=== PATIENT | male | born 1960 | race Caucasian/White ===

== ENCOUNTER 2016-12-22 13:43 | Inpatient (IN) ==
[2016-12-22] MEDS ORDERED: ZOFRAN IV ONE (14:06)
[2016-12-22] MEDS ORDERED: NS 1,000 ML IV ONE (14:06)
[2016-12-22] MEDS ORDERED: TORADOL IV ONE (14:06)
--- NOTE | 2016-12-22 14:16 | PROVIDER DOCUMENTATION ---
HPI-General Adult - General Chief Complaint: Male Stated Complaint: kidney stone Time Seen by Provider: 12/22/16 13:59 Source: patient Allergies/Adverse Reactions: Patient Allergies Allergy/AdvReac Type Severity Reaction Status Date / Time bimatoprost [From [place]] Allergy Mild ITCHING Verified 12/22/16 15:12 Home Medications: Home Medication List Medication Instructions Recorded Confirmed Last Taken Type Aspirin [Aspirin EC] 81 mg PO DAILY 09/03/14 12/22/16 09/03/14 21:00 History Cholecalciferol (Vitamin D3) 1,000 unit PO DAILY 09/03/14 12/22/16 09/03/14 21: 00 History [Vitamin D3] Metformin [Glucophage] 1,000 mg PO BID CC 09/03/14 12/22/16 09/03/14 21:00 History Valsartan/Hydrochlorothiazide 1 each PO DAILY 09/03/14 12/22/16 09/03/14 21:00 History [Diovan Hct 320-25 mg Tablet] Atorvastatin Calcium [Lipitor] 40 mg PO DAILY 12/22/16 12/22/16 Unknown History Clopidogrel Bisulfate [Plavix] 75 mg PO DAILY 12/22/16 12/22/16 Unknown History Isosorbide Dinitrate 30 mg PO DAILY 12/22/16 12/22/16 Unknown History - History of Present Illness -Gen Adult Nature of Presenting Problems: Pt. is 56 yom that presents with c/o pain in the suprapubic area and states he can barely urinate. Pt. reports he is being treated by Dr. Bee for a kidney stone and has not seen a urologist yet. Pt. reports he is nauseated and reports he took a percocet prior to coming to the ED. Pt. denies any other symptoms at time of exam. Location of Pain/Injury: reports: genitalia. denies: none, head, face, mouth, neck, chest, upper extremity, hand(s), abdomen, back, pelvis, lower extremity, feet, upper body, lower body, generalized, other Pain Radiation: reports: no radiation. denies: arm(s), back, buttocks, chest, epigastric, feet, groin, jaw, flank (L), legs (lower), LLQ, LUQ, neck, periumbilical, flank (R), RLQ, RUQ, shoulder(s), scapula, scrotal, sternal notch , suprapubic, legs (upper), urethral, vaginal, other Quality of Pain: reports: aching. denies: burning, cramping, dull, fullness, indigestion, pressure, sharp, stabbing, tearing, throbbing, tightness Severity: reports: moderate. denies: mild, severe Onset/Duration: reports: gradual, this morning Timing: reports: still present. denies: improving, gone now, resolved prior to arrival, intermittent, constant, changing over time, getting worse Context/Activities at Onset: reports: none. denies: recent emotional stress, recent physical stress, recent trauma history, possible bad food, cold exposure , eating, out of country travel Modifying Factors: improves with: nothing Associated Symptoms: reports: genitourinary problems, nausea. denies: denies symptoms, anxiety, arm pain, back/neck pain, chest pain, constipation, cough, diaphoresis, diarrhea, dizziness, EENT symptoms, fatigue, fever/chills, headaches, heartburn, joint pain, loss of appetite, malaise, muscle aches, sinus congestion/drainage, rash, seizure, shortness of breath, sensory/motor loss, pain with inspiration, swelling/mass in abdomen, syncope, vomiting, weakness, trouble walking, other Similar Symptoms Previously?: Yes Recently seen or treated by another doctor?: Yes Review of Systems - Adult - REVIEW OF SYSTEMS - ADULT Constitutional: reports: see HPI. denies: chills, fever, fatique Eyes: reports: see HPI. denies: discharge, blurred vision, double vision Ears, Nose, Mouth & Throat: reports: see HPI. denies: ear pain, sinus problem, mouth/dental pain, throat swelling Cardiovascular: reports: see HPI. denies: chest pain, irregular heart rate, palpitations, syncope Respiratory: reports: see HPI. denies: cough, dyspnea on exertion, pleurisy, wheezing Gastrointestinal: reports: see HPI, abdominal pain, nausea. denies: diarrhea, vomiting Genitourinary: reports: see HPI, flank pain, urinary retention. denies: discharge, hesitency, incontinence, urgency Musculoskeletal: reports: see HPI. denies: bone pain, joint pain, muscle aches , neck pain Integumentary: reports: see HPI. denies: hives, itching, rash, skin thickening Neurological: reports: see HPI. denies: ataxia, headache/migraines, numbness, seizure, tremors Psychiatric: reports: see HPI. denies: anxiety, depression, emotional problems , insomnia, panic attacks, suicidal thoughts Past History - Adult - PAST MEDICAL HISTORY-ADULT Review of Records: reports: Old Records Reviewed, Nursing Assessment Review, Medications Reviewed, Social history reviewed & non-contributory. Cardiovascular: reports: CAD, HTN, hyperlipidemia Endocrine/Immune: reports: Diabetes - IMMUNIZATION STATUS Childhood Immunizations: See Nurse Assessment Flu Vaccine: See Nurse Assessment - FAMILY HISTORY Family History: reviewed, not pertinent - SOCIAL HISTORY Smoking: denies Physical Exam-General - PHYSICAL EXAM-ADULT Initial Vital Signs Reviewed: Yes - CONSTITUTIONAL General Appearance: alert, moderate distress, obese. negative: thin, anxious, lethargic, slow to respond, obtunded, combative - EYES Eyes: PERRL/EOMI, pink conjunctivae. negative: conjuctival exudate, scleral icterus, subconjunctival hemorrhage - HEAD, EARS, NOSE, MOUTH & THROAT HENMT: normocephalic/atraumatic, moist mucous membranes. negative: angioedema, frontal tenderness, maxillary tenderness - NECK Neck: non-tender, full range of motion, supple, normal inspection. negative: lymphadenopathy, trachial deviation, thyromegaly - RESPIRATORY Respiratory: lungs clear, normal breath sounds. negative: crackles, rales, rhonchi, stridor, wheezing - CARDIOVASCULAR Cardiovascular: normal peripheral pulses, regular rate, rhythm, no edema, no JVD , no murmur. negative: extra beats, friction rub, irregularly irregular - GASTROINTESTINAL (ABDOMEN) Abdominal Exam: normal bowel sounds, soft, tenderness (Suprapubic). negative: distended, guarding, rigid, rebound, hernia, mass - LYMPHATIC Lymphatic: no adenopathy. negative: axilla node tender, cervical node tenderness - MUSCULOSKELETAL Back Exam: normal inspection, no CVA tenderness, no vertebral tenderness. negative: ecchymosis, swelling, vertebral tenderness Extremity: normal range of motion, non-tender, normal gait, normal inspection. negative: deformity, erythema, inflammation, swelling, tenderness Peripheral Pulses: radial (R): 2+, radial (L): 2+ - SKIN Integumentary: normal color, normal turgor, warm/dry. negative: cyanosis, diaphoresis, ecchymosis, erythema, jaundice, mottled, pallor, petechiae, purpura , rash, swelling, tenderness - NEUROLOGIC Neurologic: grossly normal, no motor/sensory deficits. negative: aphasia, facial droop, focal weakness, motor weakness, sensory deficit - PSYCHIATRIC Psych/Mental Status: normal mood/affect, normal thought content, normal thought process, oriented x 3. negative: anxious, paranoid, tearful Progress - PLAN OF CARE/RESULTS Progress/Plan/Lab Results: Vital Signs - 8 hr 12/22/16 13:56 Temperature 97.7 F Pulse Rate 56 L Respiratory Rate 16 Blood Pressure 190/99 O2 Sat by Pulse Oximetry 99 Orders Category Date Time Status Saline Loc NOW Care 12/22/16 14:[address] RENAL STONE SEARCH [CT] Stat Exams 12/22/16 14:00 Ordered CBC WITH ELECTRONIC DIFF [HEME] Stat Lab 12/22/16 14:08 Ordered COMPREHENSIVE METABOLIC PANEL [CHEM] Stat Lab 12/22/16 14:08 Ordered URINALYSIS W/POSS RFLX CULT-1 [URINALYSIS] Stat Lab 12/22/16 14:08 Ordered 0.9% Sodium Chloride Inj [Ns] 1,000 ml Med 12/22/16 14:06 Active IV 999 mls/hr Ketorolac [Toradol] Med 12/22/16 14:06 Discontinued 30 mg IV NOW ONE Ondansetron [Zofran] Med 12/22/16 14:06 Discontinued 4 mg IV NOW ONE Laboratory Tests 12/22/16 12/22/16 12/22/16 14:00 14:00 14:06 WBC 5.82 RBC 5.14 Hgb 16.1 Hct 46.0 MCV 89.5 MCH 31.3 H MCHC 35.0 RDW Std Deviation 13.5 Plt Count 181 MPV 10.2 Immature Gran % (Auto) 0.3 Neut % (Auto) 67.2 Lymph % (Auto) 21.0 Hale % (Auto) 8.6 Eos % (Auto) 2.2 Baso % (Auto) 0.7 Immature Gran # (Auto) 0.02 Neut # (Auto) 3.91 Lymph # (Auto) 1.22 Hale # (Auto) 0.50 Eos # (Auto) 0.13 Baso # (Auto) 0.04 Sodium Potassium Chloride Carbon Dioxide Anion Gap BUN Creatinine Estimated GFR/1.73 m2 BUN/Creatinine Ratio Glucose Calculated Osmolality Calcium Total Bilirubin AST ALT Alkaline Phosphatase Total Protein Albumin Globulin Albumin/Globulin Ratio Urine Source Cancelled CATH Urine Color Cancelled YELLOW Urine Clarity CLEAR Urine Turbidity Cancelled Urine pH Cancelled 5.5 Ur Specific [place] Cancelled >= 1.030 Urine Protein Cancelled 100 A Ur Glucose (Stick) Cancelled Urine Ketones NEGATIVE Ur Ketones (Stick) Cancelled Urine Blood Cancelled LARGE A Urine Nitrite Cancelled NEGATIVE Urine Bilirubin Cancelled NEGATIVE Urine Urobilinogen 0.2 Urobilinogen Dipstick Cancelled Urine Leukocytes Cancelled Urine WBC (Auto) Cancelled Urine RBC (Auto) Cancelled U Epithel Cells (Auto) Cancelled Urine Bacteria (Auto) Cancelled Urine Microscopic RBC <10 Urine WBC NEGATIVE Urine Microscopic WBC <10 Ur Epithelial Cells <10 Urine Glucose NEGATIVE 12/22/16 14:06 WBC RBC Hgb Hct MCV MCH MCHC RDW Std Deviation Plt Count MPV Immature Gran % (Auto) Neut % (Auto) Lymph % (Auto) Hale % (Auto) Eos % (Auto) Baso % (Auto) Immature Gran # (Auto) Neut # (Auto) Lymph # (Auto) Hale # (Auto) Eos # (Auto) Baso # (Auto) Sodium 135 L Potassium 4.7 Chloride 95 L Carbon Dioxide 28 Anion Gap 12 BUN 18 Creatinine 0.9 Estimated GFR/1.73 m2 > 60 BUN/Creatinine Ratio 20 Glucose 191 H Calculated Osmolality 277 Calcium 10.4 H Total Bilirubin 0.83 AST 30 ALT 50 H Alkaline Phosphatase 84 Total Protein 7.7 Albumin 5.1 H Globulin 2.6 Albumin/Globulin Ratio 2.0 Urine Source Urine Color Urine Clarity Urine Turbidity Urine pH Ur Specific [place] Urine Protein Ur Glucose (Stick) Urine Ketones Ur Ketones (Stick) Urine Blood Urine Nitrite Urine Bilirubin Urine Urobilinogen Urobilinogen Dipstick Urine Leukocytes Urine WBC (Auto) Urine RBC (Auto) U Epithel Cells (Auto) Urine Bacteria (Auto) Urine Microscopic RBC Urine WBC Urine Microscopic WBC Ur Epithelial Cells Urine Glucose Discussed results and plan of care with patient. Patient agrees with plan and verbalizes understanding. Result Diagrams: 12/22/16 14:06 12/22/16 14:06 - CT/MRI 1 CT Study: Renal Stone (1. Persistent distal ureter stone on the right. Now there is significant hydroureteronephrosis. 2. Stable left nephrolithiasis. 3. Stable abnormal contour of the prostate gland. Further, outpatient investigation recommended. ([place])) CT Results: See note - CONSULTS/PCP/HOSPITALIST Notification #1 *Consult/PCP/Hospitalist*: Dr. Bee Time Discussed: 16:33 Reason/Comments: Admission Consult Disposition: Will see in ED (Dr. Bee at bedside now.), Admit #2 Consult: Dr. Keller Time Discussed: 16:40 Reason/Comments: Consult Consult Disposition: other (Dr. Keller staff called because he was in with a patient. She will speak with him and call back. His staff called back and he will see the patient after he finishes with clinic.) Departure - Departure Date of Disposition Decision: 12/22/16 Time of Disposition Decision: 15:05 DIAGNOSIS: Renal colic Disposition: ADMITTED INPATIENT Certified Medical Emergency: Emergent Condition: Stable Additional Freetext Instructions: Follow up with primary care physician Follow up with urology physician Take medications as directed Return to ED for any concerns or worsening of symptoms ED Follow Up Instructions: You have been treated by a care provider in the Emergency Department. These instructions are being provided to you so you can have an understanding of how to care for yourself upon discharge. Upon discharge from the Emergency Department, you are responsible for making arrangements for follow-up care by a physician of your choice. Take all prescribed medications as directed. Return to the Emergency Department immediately for any new or worsening symptoms. You may call the Physician Referral phone number at [phone] to obtain a list of Physicians who are taking new patients. Referrals and Follow-Ups: Thor Bee MD [Primary Care Provider] - Work Excuses: Return to School/Parent Work Discharge Education: Renal Colic - Critical Care Note This patient required my direct & personal management of CC.: No Attestation - Physician/ LACHO Attestation Patient care was provided by Advanced Practice Provider:: Yes Advanced Practice Provider:: Armaan Carvajal (The physician is on site and did have face to face contact with the patient. ) Advanced Practice Provider documentation review:: The Mid-level provider documentation, treatment plan and medical decision making was reviewed by the physician who agrees with all treatment and medical decision making by the MLP. The physician spent face to face time with patient:: Yes Advanced Practice Provider documentation review:: Supervising physician onsite and consulted in the evaluation and care of this patient. The physician did have a face to face encounter with the patient.
[2016-12-22 14:20] LABS: MANUAL DIFF NEEDED? NO
[2016-12-22 14:31] LABS: BASO% 0.7 % (0.0-0.8); EOS# 0.13 X1000 (0.0-0.7); EOS% 2.2 % (0.0-10.0); HEMOGLOBIN 16.1 g/dL (14.0-18.0); IMM GRAN# 0.02 X1000 (0.0-0.04); IMM GRAN% 0.3 % (0.0-0.5); LYMPH# 1.22 X1000 (1.2-3.4); MCH 31.3 PG (27-31); MCV 89.5 FL (81-99); MONO% 8.6 % (1.7-9.3); MPV 10.2 FL (7.4-10.4); NEUT% 67.2 % (42.2-75.2); PLT 181 X1000 (130-400); RBC 5.14 XMIL (4.7-6.1)
[2016-12-22 14:43] LABS: AGAP 12; ALBUMIN 5.1 g/dL (3.5-5.0); ALKALINE PHOSPHATASE 84 U/L (32-122); BUN 18 mg/dL (8-22); CALCIUM 10.4 mg/dL (8.8-10.2); CHLORIDE 95 mmol/L (98-107); COSMO 277; GOT 30 U/L (10-34); GPT 50 U/L (10-44); POTASSIUM 4.7 mmol/L (3.5-5.1); SODIUM 135 mmol/L (136-145); TCO2 28 mmol/L (25-35); TOTAL BILIRUBIN 0.83 mg/dL (0.20-1.00); TOTAL PROTEIN 7.7 g/dL (6.3-8.3)
--- NOTE | 2016-12-22 14:45 | Diag Imaging Result Doc PS360 ---
CT RENAL STONE SEARCH - 12/22/2016 INDICATION: suprapubic pain TECHNIQUE: A CT dose reduction protocol was used. COMPARISON: 12/03/2016 FINDINGS: The right distal ureter stone has migrated a bit more distal. This measures 6.9 x 3.6 cm. Now there is moderate right hydroureteronephrosis. Stable nonobstructing 3 mm left renal stone. Stable enlargement of the right posterior peripheral zone of the prostate gland. Further outpatient management recommended. Urinary bladder is collapsed and otherwise normal. Rectum is normal. No bowel obstruction or inflammation. There are moderate degenerative changes of the spine. No acute or suspicious bony lesion. IMPRESSION: 1. Persistent distal ureter stone on the right. Now there is significant hydroureteronephrosis. 2. Stable left nephrolithiasis. 3. Stable abnormal contour of the prostate gland. Further, outpatient investigation recommended. Electronically signed by Watson Wadsworth 12/22/2016 2:42 PM
[2016-12-22 15:18] LABS: URINE SOURCE CATH
[2016-12-22 15:30] LABS: BILIRUBIN URINE NEGATIVE (NEGATIVE); BLOOD URINE LARGE (NEGATIVE); CLARITY CLEAR (CLEAR); COLOR YELLOW; GLUCOSE URINE NEGATIVE (NEGATIVE); LEUKOCYTES URINE NEGATIVE (NEGATIVE); NITRITE URINE NEGATIVE (NEGATIVE); PH URINE 5.5; PROTEIN URINE 100 mg/dL (NEGATIVE); SP GRAVITY URINE >= 1.030; UROBILINOGEN URINE 0.2 EU/dL (0.2-1.0)
[2016-12-22 15:40] LABS: URINE CULTURE NEEDED? YES; URINE EPITHELIAL CELLS <10 /HPF (<10); URINE RBC <10 /HPF (<10); URINE WBC <10 /HPF (<10)
[2016-12-22] MEDS ORDERED: SODIUM CHLORIDE 0.9% INJ ONE (16:35)
[2016-12-22] MEDS ORDERED: SODIUM CHLORIDE 0.9% INJ PRN (16:43)
[2016-12-22] MEDS: DILAUDID IV PRN ×2 (17:03→23:05)
[2016-12-22] MEDS: PHENERGAN IV SCH ×2 (17:03→21:45)
--- NOTE | 2016-12-22 19:44 | CONSULTATION ---
DATE OF CONSULTATION: 12/22/2016 ATTENDING AND REFERRING PHYSICIAN: Thor Bee MD HISTORY OF PRESENT ILLNESS: This 56-year-old male has a history of renal lithiasis. He states he developed right flank pain and suprapubic area pain earlier today. He states it became very severe and had to come to the emergency room. He also states he would feel like he would need to void and only a few drops would come out. He states he thinks he passed stones previously. His CT stone search revealed a 6.9 x 3.6 mm stone in the right distal ureter and a 3 mm stone in the left kidney. The patient states he feels a little better after getting pain medication. PAST SURGICAL HISTORY: Right ear surgery. Nasal surgery. Lung biopsies for sarcoidosis. Several eye surgeries. Coronary artery stent placement. PAST MEDICAL HISTORY: Coronary artery disease, hypertension, elevated cholesterol, history of sarcoidosis. CURRENT MEDICATIONS: Vitamin D. Metformin. Diovan. Lipitor. Plavix. Isosorbide. SOCIAL HISTORY: No recent tobacco or alcohol use. ALLERGIES: No known drug allergies. REVIEW OF SYSTEMS: He states usually he is in good health. He denies any problems with recent chest pains or pulmonary problems. He states he has had some diarrhea. PHYSICAL EXAMINATION: General: A mildly obese, age apparent, normally developed, white male, oriented in all ways and cooperative. HEENT: Normal for age. Lungs: Clear. Cardiovascular: Regular rate and rhythm. Abdomen: Protuberant, soft, nontender. No hepatosplenomegaly or masses. Normal bowel sounds. Back: Mild right CVA tenderness. No guarding. : Normal male. Meatus is normal. No discharges. Both testes are down. Small bilateral hydroceles. No inguinal hernias. Rectal: Deferred until surgery. Extremities: No clubbing, cyanosis, or edema. Neurologic: No focal deficits. LABORATORY EVALUATION: He has a white count of 5.82, hemoglobin 16.1, hematocrit of 46 and his platelets are 181,000. Serum electrolytes have a sodium 135, potassium 4.7, chloride 95, bicarb 28, BUN 18, creatinine 0.9. Urinalysis has large blood on the dipstick, but less than 10 red cells per high-power field. All else is negative. IMPRESSION: 1. Right distal ureteral stone with moderate obstruction and subsequent irritative voiding symptoms. 2. Small nonobstructing left renal stone. 3. Enlarged prostate with mild obstructive voiding symptoms. RECOMMENDATIONS: Recommend cystoscopic examination, right ureteroscopy, laser lithotripsy of the stone basket extraction of fragments, and placement of a right double-J stent under anesthesia. The planned procedure, benefits versus risks, and possible complications, including, but not limited to bleeding, infection, not being able to remove the stone, need for further stone surgery was discussed. He seems to understand and desires to proceed. His was present during this discussion. cc: MD Thor Kang MD
--- NOTE | 2016-12-22 21:54 | HISTORY AND PHYSICAL ---
CHIEF COMPLAINT: Lower abdominal pain bilaterally right greater than left with history of recent kidney stone. HISTORY OF PRESENT ILLNESS: The patient is a 56-year-old white male followed in my medical practice who has been suffering from a previously known right distal ureteral stone 5 mm and was given outpatient treatment with ABDULKADIR and Flomax and at 1 point he thought he had passed the stone and had done well for several days but then today the pain resumed in the right lower abdomen and some difficulty voiding, also had some pain in the left lower abdomen as well. There is no fever. MEDICATIONS: Prior to admission are metformin 500 mg 2 p.o. b.i.d., aspirin 81 mg p.o. daily, Diovan/hydrochlorothiazide 320/25 one p.o. q.a.m., vitamin D3 1000 units p.o. daily, Plavix 75 mg p.o. daily, Imdur 30 mg p.o. q.a.m., Lipitor 40 mg p.o. daily. Again he has taken some recent Flomax but apparently had stopped that after having received that on a prescription along with ABDULKADIR back on November 27. ALLERGIES: Bimatoprost. PAST MEDICAL HISTORY: 1. Type 2 DM. 2. Coronary artery disease with history of 2 stents. 3. Hypertension. 4. Hypercholesterolemia. 5. History of Meniere disease on chronic diuretic. 6. 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 7. Chronic right pupillary dilation. 8. Hyperparathyroidism with patient declining further treatment per Dr. Goodman in [place] recently. PAST SURGICAL HISTORY: 1. Four eye surgeries. 2. Septoplasty. 3. Ear surgery. 4. Cataract surgery. 5. Cornea transplant. IMMUNIZATIONS: He has taken last flu vaccination December 2015, Tdap given December 2015, hepatitis B vaccine given December 2015, hepatitis A vaccine given December 2015. FAMILY HISTORY: Notable for several brothers, father and sister with hypertension. SOCIAL HISTORY: The patient lives in [place]. He is . He is retired from [employer]. 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 He is a nonsmoker and nondrinker. 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 PHYSICAL EXAM: VITAL SIGNS: 6 feet 8 inches tall, afebrile, pulse 56, respirations 16, blood pressure 179/101, 325 pounds. GENERAL: Mildly obese white male, was in quite a bit of distress but has improved with some pain medication in the form of Percocet he took just before presentation to the emergency room. SKIN: No rashes. HEENT: NC/AT. Chronic pupillary changes bilaterally. TMs clear. OP no redness. Tongue in the midline. NECK: No LA, TMG, JVD, bruits. CV: RRR without murmur. LUNGS: CTA. BACK: No definite CVA tenderness. ABDOMEN: Soft. There is mild tenderness right lower quadrant. Minimal left lower quadrant. No masses or organomegaly. No rebound or guarding. GENITOURINARY/RECTAL: Deferred. EXTREMITIES: No calf tenderness, cords or edema. NEUROLOGIC: Cranial nerves 2-12 are intact. Nonfocal. LABS: Show white count of 5.82, hemoglobin 16.1, hematocrit 46, MCV 89.5, platelets 181,000, neutrophils 67, lymphocytes 21, monocytes 8.6. Sodium 135, potassium 4.7, chloride 95, CO2 28, BUN 18, creatinine 0.9, glucose 191, calcium 10.4, total bilirubin 0.83, AST 30, ALT 50, alkaline phosphatase 84, total protein 7.7, albumin 5.1. Urinalysis shows large blood, [address] RSS reveals persistent distal ureteral stone on the right now measured at 7 x 3.6 mm with some significant right-sided hydroureteronephrosis which has developed since last CT, also stable left renal stone nonobstructing within the kidney itself at 3 mm, stable abnormal contour the prostate gland noted. ASSESSMENT: 1. Right distal ureteral stone with right hydronephrosis. 2. Left nephrolithiasis at 3 mm nonobstructing. 3. Hyperparathyroidism with the patient declining further surgical treatment to this point. 4. Type 2 diabetes mellitus. 5. Hypertension. 6. Hypercholesterolemia. 7. Coronary artery disease with history of stents x2. 8. Chronic eye difficulties followed by Dr. Perez and Dr. Crowell. 9. Meniere disease. PLAN: Will admit the patient to the hospital on telemetry bed. I asked Dr. Keller to see the patient in consultation. We will give the patient pain control with Dilaudid, antiemetic with Phenergan, gentle hydration may be required but at this point patient is not putting out a great deal of urine so will ask Dr. Keller to see him before that is administered. Will place him on diabetic diet. Monitor serial Accu-Cheks with sliding scale as required. cc: Thor Bee MD
[2016-12-22] MEDS ORDERED: NS 1,000 ML IV SCH (22:00)
[2016-12-23] MEDS: PHENERGAN IV SCH ×4 (00:45→13:37)
[2016-12-23] MEDS: NORCO-10 PO PRN ×2 (02:45→15:34)
[2016-12-23] MEDS: DILAUDID IV PRN (05:40)
[2016-12-23] MEDS: HUMULIN R SUBQ SCH ×2 (06:18→13:37)
--- NOTE | 2016-12-23 08:06 | PROGRESS NOTE ---
DATE: 12/23/2016 SUBJECTIVE: Patient is more comfortable with taking oral hydrocodone and some Dilaudid as well for pain control. He is scheduled for cystoscopy with J and J stent placement today per Dr. Keller. OBJECTIVE: Vital signs: Afebrile, pulse 64, respirations 12-15, blood pressure 132/82, O2 saturation room air 94 to 98%. CV: RRR without murmur. Lungs: CTA. Abdomen: Soft. Minimal tenderness right lower quadrant, right suprapubic area. No mass or organomegaly. Extremities: No calf tenderness, cords, or edema. I's and O's show 150 mL in and 425 out. Urine culture in progress. ASSESSMENT: 1. Right distal ureteral kidney stone with right hydronephrosis. 2. Left nephrolithiasis consisting of 3 mm nonobstructing stone within the left kidney. 3. Hyperparathyroidism. 4. Type 2 diabetes mellitus. 5. Hypertension. 6. Hypercholesterolemia. 7. Coronary artery disease. 8. Chronic eye difficulties, followed by Dr. Perez and Dr. Leonard. 9. Meniere disease. PLAN: Continue gentle hydration, IV Dilaudid, oral hydrocodone, and Phenergan IV. Dr. Keller planned surgery for today. Will continue to monitor Accu-Cheks and give him SSI as required. Will follow up later this afternoon. cc: Thor Bee MD
[2016-12-23] MEDS ORDERED: HYDROCHLOROTHIAZIDE PO SCH (09:00)
[2016-12-23] MEDS ORDERED: DIOVAN PO SCH (09:00)
[2016-12-23] MEDS ORDERED: DIPRIVAN 1% ONE (11:31)
[2016-12-23] MEDS ORDERED: FENTANYL ONE (11:31)
[2016-12-23] MEDS ORDERED: XYLOCAINE-MPF 2% ONE (11:32)
[2016-12-23] MEDS ORDERED: LR 1,000 ML ONE (11:40)
[2016-12-23] MEDS ORDERED: ZOFRAN ONE (11:40)
[2016-12-23] MEDS ORDERED: KEFZOL 2 GM/D5W 2 GM/50 ML IVPB ONE (12:07)
[2016-12-23] MEDS ORDERED: MORPHINE ONE (13:29)
[2016-12-23] MEDS: MORPHINE ONE ×2 (13:35→13:41)
--- NOTE | 2016-12-23 13:53 | Diag Imaging Result Doc PS360 ---
EXAM: FLUOROSCOPY CYSTO HISTORY: RT. STONE REMOVED, PUT UP STENT TECHNIQUE: 12.75 mGy, 25 seconds fluoroscopy time, 14 images COMMENT: No contrast was administered. There was evidently a removal of a stone from the right renal pelvis by Dr. Keller. A stent was placed at the end of the procedure. IMPRESSION: Right ureteral stent placement. Electronically signed by Keon Hdz 12/23/2016 1:50 PM
[2016-12-23] MEDS ORDERED: DITROPAN PO PRN (14:37)
--- NOTE | 2016-12-23 16:31 | OPERATIVE NOTE ---
PROCEDURE DATE: 12/23/2016 SURGEON: Dr. Keller PREOPERATIVE DIAGNOSES: 1. Right distal ureteral stone with moderate obstruction. 2. Irritative voiding symptoms POSTOPERATIVE DIAGNOSES: 1. Right distal ureteral stone with moderate obstruction. 2. Irritative voiding symptoms PROCEDURE PERFORMED: 1. Cystoscopic exam. 2. Right ureteroscopy. 3. Laser lithotripsy with stone basket extraction of fragments. 4. Placement right double-J stent. ANESTHESIA: General, via laryngeal mask. FINDINGS: Cystoscopic exam: Urethra - greater than 21 Slovak, without stricture. Prostate - coapting lateral lobes, elevated bladder neck, median lobe, length 5 cm. Bladder - normal ureteral orifices bilaterally. Grade 2 trabeculations. No papillary lesions. No diverticula. Right ureteroscopy reveals an approximate 7 mm stone in the right distal ureter, with significant dilation of the ureter behind the stone. INDICATION FOR PROCEDURE: This 56-year-old male developed significant irritative voiding symptoms and lower abdominal pains. Evaluation revealed a right distal ureteral stone. DESCRIPTION OF PROCEDURE: After informed consent was obtained by the patient, and him receiving IV antibiotics, he was taken the main OR cysto room and placed in the supine position. General anesthesia via laryngeal mask was achieved. He was then placed in a low-lithotomy position and prepped and draped in the usual sterile fashion for cystoscopic exam. A 21-Slovak cystoscope was passed through the patient's urethra, prostate and bladder, with findings noted above. A 0.035 zip wire was passed through the cystoscope, engaged right ureteral orifice, advanced up into the kidney. The cystoscope was removed, leaving the zip wire in place to act as a safety wire. A 7- Slovak Storz semi-rigid ureteroscope was advanced through the patient's urethra, prostate, and in the bladder. A 0.035 Sensor wire was passed through the ureteroscope and up into the right ureter. The ureteroscope was advanced over the Sensor wire, but beneath the zip wire, up to the stone. The Sensor wire was removed. A 365 micron laser fiber was placed. The laser was set at 8 Hz and 8 miranda, and the stone was well-fragmented. A 4 wire Nitinol basket was placed, and several passes were made to remove stone fragments. These were sent to Pathology for analysis. The ureteroscope was advanced up to above the great vessels, and no further stones or fragments were visualized. The ureteroscope was removed. A 6-Slovak, 28 cm, double-J stent was passed over the zip wire and up into the kidney. The renal end was verified by fluoroscopic exam, bladder end directly visualized. Bladder was drained. Cystoscope was removed. Stent removal string was securely taped to the penile shaft. Rectal exam was performed that revealed a prostate of 60 to 70 g, smooth and symmetric. He tolerated the procedure well. ESTIMATED BLOOD LOSS: 1 mL. DISPOSITION: He was taken to the recovery room in good condition. cc: MD Thor Kang MD
[2016-12-23 17:29] VITALS: BP 150/74
[2016-12-24] MEDS ORDERED: FLOMAX PO SCH (09:00)
== END 2016-12-23 17:42 | disposition home or self-care (01) ==
LOC: ED 13:43 → EDIPHOLD 13:44 → 4N 22:38
PROVIDERS: ADMIT Family Medicine; ATTEND Family Medicine